=== PATIENT | male | born 1945 | race Caucasian/White ===

== ENCOUNTER → 2018-07-16 | Day surgery (SDC) | payer OTHER ==
[~2018-07-16] VITALS: Ht 167.6 cm; Wt 63.5 kg
--- NOTE | 2018-07-16 16:07 | Operative Report ---
Operative/Inv Procedure Report Surgery Date: 07/16/18 Name of Procedure: Robotic repair of left inguinal hernia with 3D max medium mesh, T AP Pre-Operative Diagnosis: Left inguinal hernia Post-Operative Diagnosis: Same, kenyonalocharline with direct and indirect defects Estimated Blood Loss: none Surgeon/Percussion Instructor: Felipe FIGUEROA,Maximus Valencia PA-C Anesthesia: general endotracheal tube IV Fluids: 1 L crystalloid Implants: 3D max medium left mesh Drains: None Specimens: None Complications: None Condition: Excellent to PACU Operative Indication: Josemanuel is a 72-year-old gentleman with a left inguinal bulge that is become more prominent and uncomfortable and more difficult to reduce. He presents for a robotic repair. Operative/Procedure Note Note: Denis taken to the operating room placed on the operating table in supine position. He had been marked in the preop holding area as to the left side being correct. Following an awake timeout he underwent uneventful induction of general and endotracheal anesthesia using a glide scope as he was difficult visualization. His arms were tucked by his side Venodyne boots in place in the groins and abdomen clipped widely of hair then prepped with DuraPrep and draped in usual sterile fashion including Ioban. He received Kefzol IV prior to skin incision and then local anesthetic was infiltrated in the supraumbilical area where a curvilinear incision was made and carried down to the fascia. Fascia was opened vertically to expose the preperitoneal fat which was scant and the peritoneum well seen and incised carefully with cautery to gain entry safe into the peritoneal cavity. Finger sweep revealed there were no adhesions in 12 mm Varma air seal port was placed. Pneumoperitoneum was achieved in the 30 degree 8 mm da Tip X I scope inserted. There were no adhesions and in examining the pelvis one could see that the right groin was unremarkable while on the left side there was a large direct defect. The sigmoid was pulled up over the internal ring so one could not fully appreciate if there was a hernia here. We placed 2 8 mm working ports hand breath from the midline on each side the right side at about the level of the umbilicus in the left side slightly cephalad to it. These port placements were proceeded by local anesthetic infiltration. The patient was then placed in 15 degrees Trendelenburg position and the da Tip X I robot docked. We placed a fenestrated bipolar in the left hand arm 2 with a monopolar eduarda in arm for an arm 1 sterilely stowed. Now I created a peritoneal flap 5 cm above the estimated location of the internal ring and I carried this laterally and then medially medially across the medial umbilical ligament. I created a flap laterally and then medially leaving the hernia in place for now as I dissected all the way to the symphysis and then cleared off the ramus now working laterally. There was an excellent plane of dissection with areolar tissue and no bleeding. Now the direct hernia sac was addressed. With some traction on the free edge of the sac I was able to begin teasing the back of the peritoneum and preperitoneal fat that was adherent to it off of the attenuated transversalis fascia and was able to reduce the entirety of the direct sac rolling it off of the ramus completely. Laterally it was right up against the epigastric vessels and care was taken to avoid injury to them. Working at the area of the internal ring now I had initially presume there was no indirect hernia because the peritoneal sac did not appear to invaginate in any way however on further inspection with the flap pulled back one could see that there was a flap of peritoneum posteriorly that may have been a sliding type hernia associated with the sigmoid that was pulled up over the internal ring obscuring it. I was able to identify the sac and dissected completely off of the cord without any injury to the cord. I could see the medial deviation of the vas and there was a small lateral lipoma that came out of the internal ring as well. I was able to preserve some of the fibro-fatty areolar tissue on the lateral musculature and was happy that I had the peritoneum well dissected off the cord to accommodate the mesh. I now selected a 3D max medium left mesh and placed it into the space where it fit perfectly overlapping the symphysis medially and covering the entire myopectineal orifice with overlap of the ramus without any buckling or folding. I placed 3 2-0 Tycron sutures one medially into the rectus muscle one more lateral and inferior into Obdulio's ligament and the third out laterally and high the thin bite through the transversalis fascia there. I then closed the peritoneal flap with a 2-0 Vicryl V lock running suture. This was an absorbable suture. The instruments murmurs were removed and the robot undocked. We released the completely after removing the ports under direct vision and there was no bleeding. I closed the umbilicus with 2 [id number] sutures of 0 Maxon then using 3-0 Vicryl in the subcutaneous tissue followed by 4-0 Monocryl running subcu take of skin closure on all the skin sites. There is strips 4 x 4's and OpSite were placed. Patient tolerated procedure well taken to the recovery room in satisfactory condition extubated ulcer sponge needle counts were correct x2 completion of the case. There was no sign of significant pneumo scrotum and no subcutaneous emphysema. Findings: Pantaloon hernia with a large direct defect and an occult indirect hernia sliding type with sigmoid colon. The right side was normal Discharge Disposition: PACU
== END ==
LOC: STS 03:37
DX: K40.90 Unilateral inguinal hernia, without obstruction or gangrene, not specified as recurrent (principal); I10 Essential (primary) hypertension; I25.10 Atherosclerotic heart disease of native coronary artery without angina pectoris; J44.9 Chronic obstructive pulmonary disease, unspecified; F17.200 Nicotine dependence, unspecified, uncomplicated; I25.2 Old myocardial infarction; Z79.82 Long term (current) use of aspirin
CPT/HCPCS: C1781; J0131; J0690; J2250; J3490